=== PATIENT | male | born 1965 | race Caucasian/White ===

== ENCOUNTER 2022-12-24 00:40 | Emergency (ER) | payer BC ==
[~2022-12-24] VITALS: Ht 172.7 cm; Wt 81.8 kg
[2022-12-24 00:42] VITALS: TEMP 97.7
[2022-12-24 01:14] LABS: BASO % 0.6 % (0.0-2.0); EOS # 0.1 K/mm3 (0.0-0.7); EOS % 0.7 % (0.0-4.0); GRAN # 5.2 K/mm3 (1.4-6.5); HEMATOCRIT 39.3 % (42.0-52.0); HEMOGLOBIN 12.8 g/dl (13.5-18.0); LYMPH # 1.1 K/mm3 (1.2-3.4); LYMPH % 16.8 % (20.0-51.0); MEAN CELL VOLUME 93 fl (80.0-100.0); MEAN CORPUSCULAR HEMOGLOBIN 30 pg (27-31); MEAN CORPUSCULAR HGB CONC 33 g/dl (33.0-37.0); MEAN PLATELET VOLUME 9.3 fl (7.4-10.4); MONO # 0.3 K/mm3 (0.1-0.6); MONO % 4.6 % (1.7-9.3); PLATELET COUNT 304 K/mm3 (130-400); RED BLOOD COUNT 4.21 M/mm3 (4.20-5.60); REDCELL DISTRIBUTION WIDTH-CV 12.8 % (11.5-14.5)
[2022-12-24 01:31] LABS: ALANINE AMINOTRANSFERASE 22 U/L (0-55); ALBUMIN 4.1 gm/dL (3.5-5.0); ALKALINE PHOSPHATASE 48 U/L (40-150); ANION GAP 13 mmol/L (7-16); AST,SGOT 20 U/L (5-34); BILIRUBIN,TOTAL 0.2 mg/dL (0.2-1.2); BLOOD UREA NITROGEN 17 mg/dL (8-26); CALCIUM 9.3 mg/dL (8.4-10.2); CARBON DIOXIDE 20 mmol/L (22-29); CHLORIDE 111 mmol/L (98-107); CREATININE, serum 0.94 mg/dL (0.72-1.25); GLUCOSE 114 mg/dL (70-99); POTASSIUM 3.5 mmol/L (3.5-4.5); SODIUM 144 mmol/L (136-145); TOTAL PROTEIN 6.8 gm/dL (6.2-8.1)
[2022-12-24 01:50] LABS: TSH w REFLEX 1.002 uIU/mL (0.350-4.940)
[2022-12-24 01:55] LABS: TROPONIN-I < 0.010 ng/mL (0.00-0.033)
[2022-12-24 02:52] VITALS: BP 132/81; PULSE 80
== END 2022-12-24 02:54 | disposition home or self-care (01) ==
LOC: COL.ER 00:40
PROVIDERS: Emergency Medicine
DX: R07.89 Other chest pain (principal); Z28.310 Unvaccinated for COVID-19
CPT/HCPCS: J2060; J2405; J7120